=== PATIENT | male | born 1970 | race Caucasian/White ===

== ENCOUNTER 2020-05-06 07:04 | Inpatient (IN) | payer BC ==
[~2020-05-06] VITALS: Ht 175.3 cm; Wt 145.1 kg
[2020-05-06 07:14] VITALS: BP 168/109
[2020-05-06] MEDS ORDERED: CARVEDILOL25 MG PO (07:20)
[2020-05-06] MEDS ORDERED: SPIRONOLACTONE50 MG PO (07:20)
[2020-05-06] MEDS ORDERED: AMLODIPINE BESY10 MG PO (07:21)
[2020-05-06 07:48] LABS: ABSOLUTE LYMPHOCYTES 0.6 thou/uL (0.8-5.3); ABSOLUTE MONOCYTES 0.9 thou/uL (0.0-1.2); ABSOLUTE NEUTROPHILS 6.8 thou/uL (1.6-8.1); BASOPHILS 0.1 %; HEMATOCRIT 42.7 % (42.0-52.0); HEMOGLOBIN 14.9 gm/dL (14.0-18.0); LYMPHOCYTES 7.1 %; MCH 30.8 pg (26.0-34.0); MCHC 34.9 g/dL (28.0-37.0); MCV 88.3 fL (80.0-100.0); MONOCYTES 10.6 %; MPV 9.5 fl. (7.2-11.1); NUCLEATED RBCS 0 /100WBC; PLATELET COUNT* 304 thou/uL (150-400); POLYS 82.2 %; RBC 4.84 mil/uL (4.50-6.00); RDW-CV 13.9 % (10.5-14.5); WBC 8.3 thou/uL (4.0-11.0)
[2020-05-06 07:51] LABS: CALCIUM 8.2 mg/dL (8.5-10.1); CREATININE 1.4 mg/dL (0.6-1.3); POTASSIUM 4.7 mmol/L (3.5-5.1)
[2020-05-06 08:02] LABS: ALBUMIN 2.5 g/dL (3.4-5.0); APTT 24.5 Seconds (25.0-31.3); INR 1.1; PROTIME 11.9 Seconds (9.20-11.50); TOTAL BILIRUBIN 1.1 mg/dL (<0.1-1.0); TOTAL PROTEIN 7.1 g/dL (6.4-8.2)
--- NOTE | 2020-05-06 09:21 | NUR ---
PT GIVEN BREAKFAST TRAY.
--- NOTE | 2020-05-06 10:17 | EKG ---
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1970 Requested By: Byron Bennett Order Number: [id number] MD: Sharath Retana Measurements Intervals [place] Rate: 127 P: [place]: QRS: -5 QRSD: 100 T: 27 QT: 311 QTc: 453 Interpretive Statements Atrial fibrillation with a tachycardic ventricular response Abnormal R-wave progression, late transition No previous ECG available for comparison Electronically Signed On 05-06-2020 10:17:48 WIRE DRAWER by Sharath Retana [email or web address] <ELECTRONICALLY SIGNED> By: Sharath Retana MD, [facility] 05/06/20 1017 9 9 Sharath Retana MD, [facility] /EPI
--- NOTE | 2020-05-06 12:25 | NUR ---
PT STATES HE IS HAVING LOWER BACK PAIN AND IS REQUESTING PAIN MEDS. HOSPITALIST NOTIFIED THROUGH YOU CALL MD, AWAITING ORDERS CURRENTLY.
[2020-05-06 12:52] VITALS: BP 149/90
--- NOTE | 2020-05-06 13:29 | NUR ---
PT GIVEN LUNCH TRAY, VOICES RELIEF OF PAIN IN LOWER BACK.
[2020-05-06 17:33] VITALS: BP 131/74
[2020-05-06 18:00] VITALS: BP 156/103
[2020-05-06 20:20] VITALS: BP 137/97
[2020-05-06] MEDS ORDERED: BENAZEPRIL HCL20 MG PO (20:58)
[2020-05-07] VITALS: BP 145/89
[2020-05-07 04:00] VITALS: BP 140/96
[2020-05-07 08:00] VITALS: BP 151/88
[2020-05-07 11:16] LABS: HEMATOCRIT 40.1 % (42.0-52.0); HEMOGLOBIN 13.9 gm/dL (14.0-18.0); MCH 30.7 pg (26.0-34.0); MCHC 34.6 g/dL (28.0-37.0); MCV 88.7 fL (80.0-100.0); MPV 9.5 fl. (7.2-11.1); NUCLEATED RBCS 0 /100WBC; PLATELET COUNT* 336 thou/uL (150-400); RBC 4.52 mil/uL (4.50-6.00); RDW-CV 13.9 % (10.5-14.5); WBC 6.8 thou/uL (4.0-11.0)
[2020-05-07 11:19] LABS: BE -5.2 mmol/L (-2 to +3); PCO2 VENOUS 43.7 mmHg (41.0-51.0)
[2020-05-07 11:32] LABS: ALBUMIN 2.5 g/dL (3.4-5.0); CALCIUM 8.3 mg/dL (8.5-10.1); CREATININE 1.3 mg/dL (0.6-1.3); MAGNESIUM 2.5 mg/dL (1.8-2.4); TOTAL BILIRUBIN 0.7 mg/dL (<0.1-1.0); TOTAL PROTEIN 6.9 g/dL (6.4-8.2)
[2020-05-07 11:46] LABS: ABSOLUTE LYMPHOCYTES 0.3 thou/uL (0.8-5.3); ABSOLUTE MONOCYTES 0.1 thou/uL (0.0-1.2); ABSOLUTE NEUTROPHILS 6.5 thou/uL (1.6-8.1); PLATELET ESTIMATE ADEQUATE
--- NOTE | 2020-05-07 11:48 | NUR ---
Infection Prevention: [facility] reports patient had a positive Covid PCR test on 04/27/20.
[2020-05-07 12:00] VITALS: BP 177/83
--- NOTE | 2020-05-07 13:18 | NUR ---
CM SPOKE TO THE PT VIA THE HOSPITAL ROOM PHONE THE PT IS CURRENTLY UNDER ENHANCED PRECAUTIONS DUE TO BEING COVID POSITIVE. PT IS A&O, NORMALLY INDEPENDENT WITH ADL'S, AND ACTIVE. PT RESIDES AT HOME WITH HIS SPOUSE AND CHILDREN. PT USES O DME, BUT INFORMS THAT HE USED TO OWN A CPAP BUT HE COULDN'T AFFORD IT. PT HAS 0 HX OF HH OR SNF. PT CURRENTLY ON 2L OXYGEN, AND DID NOT HAVE HOME OXYGEN PRIOR TO ADMIT. PT INFORMS THAT HE DOES NOT CURRENTLY HAVE A PCP, BUT PLANS TO GO BACK TO HIS PREVIOUS PCP'S (DR. LUEVANO) OFFICE AND GET AN APPOINTMENT FOR A NEW PCP. CM WILL REMAIN AVAILABLE TO ASSIST AND FOLLOW FOR D/C PLANNING.
[2020-05-07 16:51] VITALS: BP 175/84
[2020-05-07 20:55] VITALS: BP 152/96
--- NOTE | 2020-05-07 23:11 | NUR ---
ZNEON MIDLINE WAS DISLODGED COMPLETELY UPON INITIAL ASSESSMENT OF PATIENT AT 1999. REMOVED DRESSING, SITE HAS NO S/S OF INFECTION.
[2020-05-08] VITALS: BP 150/87
[2020-05-08 04:30] VITALS: BP 150/99
--- NOTE | 2020-05-08 05:08 | NUR ---
PT ALERT AND UP STANDBY ASSIST. DIMINISHED LUNG SOUNDS, COUGH. AFIB WELL CONTROLLED THROUGH SHIFT. HE REQUESTED A HYDROCODONE AT BED TIME FOR LOWER BACK PAIN, SLEPT ALL SHIFT. RECEIVED ALL MEDS SCHEDULED.
[2020-05-08 12:30] VITALS: BP 137/93
--- NOTE | 2020-05-08 14:31 | EKG ---
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: : 1970 Requested By: Neela Boone Order Number: [id number] Narciso MD: Sharath Retana Measurements Intervals [place] Rate: 86 P: [place]: QRS: -8 QRSD: 104 T: -1 QT: 388 QTc: 464 Interpretive Statements Atrial fibrillation Compared to ECG 05/06/2020 07:20:26 No significant changes Electronically Signed On 05-08-2020 14:31:50 BIOMEDICAL SPECIALIST by Sharath Retana [email or web address] <ELECTRONICALLY SIGNED> By: Sharath Retana MD, [facility] 05/08/20 [phone] Sharath Retana MD, [facility] /EPI
--- NOTE | 2020-05-08 14:40 | NUR ---
DISCUSSED IN PRIME TIMES ROUNDS THIS AM. PT.IS DOING WELL. POTENTIAL FOR DISCHARGE TOMORROW. RESTING AND EXERCISE SATS ORDERED. SHOULD NOT HAVE NEED FOR HOME HEALTH.
[2020-05-08 17:30] VITALS: BP 174/98
--- NOTE | 2020-05-08 19:07 | NUR ---
PT A&OX4 VSS. PT UP AD OSVALDO TO BSC. PT SAT 93% ON ROOM AIR. EDEMA OBSERVED TO BLE. IV TO RFA AND MIDLINE TO OL ARM STARTED BY NEGIN VILLALOBOS. PT UP TO RECLINER THIS SHIFT. PT RESTS WITH CALL LIGHT IN REACH. WILL CONTINUE TO MONITOR.
[2020-05-08 20:05] VITALS: BP 156/99
[2020-05-08 23:33] VITALS: BP 128/108
[2020-05-09 04:00] VITALS: BP 171/108
--- NOTE | 2020-05-09 04:40 | NUR ---
PT GIVEN 1 HYDROCODONE AT BEDTIME FOR CHRONIC LOWER BACK PAIN. HE IS STANDBY ASSIST. ROOM AIR. DOING MUCH BETTER STATES HE FEELS MUCH BETTER JUST SOME ISSUES WITH SOME DIARRHEA. OTHER THAN THAT NO REPORTS OF WORSENING OF CONDITION.
[2020-05-09] MEDS ORDERED: ZINC SULFATE 2220 MG PO (09:15)
[2020-05-09] MEDS ORDERED: PREDNISONE 10 M10 MG PO (09:15)
[2020-05-09] MEDS ORDERED: PEPCID20 MG PO (09:15)
[2020-05-09] MEDS ORDERED: PRINIVIL40 MG PO (09:15)
[2020-05-09] MEDS ORDERED: PNV 29-1 TABLE1 EACH PO (09:15)
[2020-05-09] MEDS ORDERED: CEFDINIR300 MG PO (09:15)
[2020-05-09] MEDS ORDERED: SORINE 80 MG TA80 M1 PO (09:15)
[2020-05-09 10:00] VITALS: BP 142/95
[2020-05-09 11:38] VITALS: BP 147/98
--- NOTE | 2020-05-09 12:00 | NUR ---
ASSUMED CARE OF PT AT 0730. PT SITTING UP IN THE CHAIR WAITING FOR BREAKFAST. A&0X4, DENIES ANY PAIN OR SHORTNESS OF BREATH AT THIS TIME. ON RA SAT UPPER 90'S. PT HAS NON PRODUCTIVE COUGH. TRACING AFIB ON THE ASSISTANT FRONT DESK MANAGER. RATE CONTROLLED. PT UP AD OSVALDO IN ROOM. PT GOAL FOR TODAY IS DISCHARGE PLANNING TO HOME. AM ASSESSMENT CHARTED. MEDICATIONS PER MAR. PT REPOSITIONS SELF. HOURLY ROUNDING OBSERVED. BED IN LOW POSITION. CALL LIGHT WITHIN REACH. WILL CONTINUE PLAN OF CARE.
--- NOTE | 2020-05-09 13:41 | EKG ---
[place] [address] ELECTROCARDIOGRAM REPORT Name: BRIDGET MCKEON Room: [address] ADM IN M.R.#: [id number] Admission: 05/06/20 Attend Phys: Sonia Palm, Discharge: Date of : 70 Date of Service: 05/09/20 1104 Report #: [id number] THIS REPORT FOR: //name// 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 : 1970 Requested By: Neela Boone Order Number: [id number] Reading MD: Santy Chau Measurements Intervals [place] Rate: 89 P: [place]: QRS: -17 QRSD: 116 T: 19 QT: 391 QTc: 476 Interpretive Statements Atrial fibrillation Nonspecific intraventricular conduction delay Low voltage, precordial leads Compared to ECG 05/08/2020 08:43:25 Intraventricular conduction delay now present Low QRS voltage now present Electronically Signed On 05-09-2020 13:41:10 PATIENT DAY COORDINATOR by Santy Chau [email or web address] <ELECTRONICALLY SIGNED> By: Santy Chau MD, FACC 05/09/20 1341 1104 1104 Santy Chau MD, FAC /EPI
[2020-05-09 15:38] VITALS: BP 147/98
--- NOTE | 2020-05-09 15:55 | 2DMMODE ---
[place] [address] 2 D/M-MODE ECHOCARDIOGRAM Name: AGAPITOLISS LEMihir Winkler Room: [address] IN M.R.#: [id number] Admission: 05/06/20 Attend Phys: Sonia Palm, Discharge: Date of : 70 Date of Service: 05/09/20 1554 Report #: [id number] THIS REPORT FOR: cc: FAM - No family physician/PCP FAM - No family physician/PCP Santy Chau MD [facility] ~ APPROVED REPORT Study performed: 05/07/2020 08:41:04 EXAM: Comprehensive 2D, Doppler, and color-flow Echocardiogram Patient Location: In-Patient BSA: 2.52 HR: 93 bpm BP: 177/83 mmHg Rhythm: Atrial Fibrillation Other Information Study Quality: Fair Technically limited study due to body habitus. 2D Dimensions IVSd: 11.49 (7-11mm) LVOT Diam: 19.58 (18-24mm) LVDd: 39.67 mm PWd: 9.99 (7-11mm) Ascending Ao: 30.46 (22-36mm) LVDs: 26.87 (25-40mm) Aortic Root: 27.45 mm Pulmonary Valve PV Peak Arnoldo.: 1.03 m/s PV Peak Gr.: 4.27 mmHg Left Ventricle The left ventricle is normal size. There is normal LV segmental wall motion. There is normal left ventricular wall thickness. The left ventricular systolic function is normal. LVEF is 55-60%. This study is not technically sufficient to allow evaluation of the LV diastolic function due to atrial fibrillation. Right Ventricle The right ventricle is normal size. The right ventricular systolic function is [place] [address] 2 D/M-MODE ECHOCARDIOGRAM Name: BRIDGET MCKEON Room: [address] IN .R.#: [id number] Admission: 05/06/20 Attend Phys: Sonia Palm, Discharge: Date of : 70 Date of Service: 05/09/20 1554 Report #: [id number] Left atrium is moderately dilated. The right atrium size is normal. Aortic Valve The aortic valve is normal in structure. No aortic regurgitation is present. Mitral Valve The mitral valve is normal in structure. There is no mitral valve regurgitation noted. Tricuspid Valve The tricuspid valve is normal in structure. There is no tricuspid valve regurgitation noted. Pulmonic Valve The pulmonary valve is normal in structure. There is no pulmonic valvular regurgitation. Great Vessels The aortic root is normal in size. IVC is normal in size and collapses >50% with inspiration. <Conclusion> The left ventricle is normal size. There is normal left ventricular wall thickness. The left ventricular systolic function is normal. LVEF is 55-60%. This study is not technically sufficient to allow evaluation of the LV diastolic function due to atrial fibrillation. There is normal LV segmental wall motion. Left atrium is moderately dilated. IVC is normal in size and collapses >50% with inspiration. <ELECTRONICALLY SIGNED> By: Santy Chau MD, FACC 05/09/20 1554 1554 1554 Santy Chau MD, FACC /INF
--- NOTE | 2020-05-09 16:15 | NUR ---
PER R.T., PT.DID NOT QUALIFY FOR HOME O2 WITH RESTING AND EXERCISE SAT TEST. NO HOME HEALTH OARDERS WRITTEN. WILL GO HOME WITH SELF CARE.
--- NOTE | 2020-05-09 19:25 | NUR ---
DISCHARGE ORDERS RECEIVED. DISCHARGE INSTRUCTIONS, CARE NOTES, SCRIPTS AND FOLLOW UP APPTS GIVEN TO PT. PT COMMUNICATES UNDERSTANDING OF DISCHARGE TEACHING. PERIPHERAL IV AND MIDLINE IV REMOVED WITH NO DIFFICULTIES. LAW FIRM ADMINISTRATOR REMOVED. PT DISCHARGED WITH ALL BELONGINGS AND PAPERWORK VIA WHEELCHAIR WITH NURSING STAFF TO SPOUSE OWN PERSONAL VEHICLE.
== END 2020-05-09 19:28 | disposition home or self-care (01) | DRG 177 ==
LOC: M.ERS 07:04 → M.TBA-ER 08:52 → M.ORTHSURG 08:52
PROVIDERS: Family Medicine; Internal Medicine; ADMIT Internal Medicine; ATTEND Internal Medicine
PROC: 05HY33Z Insertion of Infusion Device into Upper Vein, Percutaneous Approach (ICD-10-PCS; principal; 2020-05-06)
DX: U07.1 COVID-19 (principal); J96.01 Acute respiratory failure with hypoxia; J12.82 Pneumonia due to coronavirus disease 2019; R65.11 Systemic inflammatory response syndrome (SIRS) of non-infectious origin with acute organ dysfunction; N17.0 Acute kidney failure with tubular necrosis; E87.1 Hypo-osmolality and hyponatremia; Z68.42 Body mass index [BMI] 45.0-49.9, adult; I10 Essential (primary) hypertension; E66.01 Morbid (severe) obesity due to excess calories; G47.33 Obstructive sleep apnea (adult) (pediatric); I48.0 Paroxysmal atrial fibrillation; Z82.49 Family history of ischemic heart disease and other diseases of the circulatory system

== ENCOUNTER 2020-06-15 11:33 | Observation (INO) | payer BC ==
[~2020-06-15] VITALS: Ht 177.8 cm; Wt 145.2 kg
[~2020-06-15 11:33] MED LIST: AMLODIPINE BESY10 MG PO; BENAZEPRIL HCL20 MG PO; CARVEDILOL25 MG PO; CEFDINIR300 MG PO; PEPCID20 MG PO; PNV 29-1 TABLE1 EACH PO; PREDNISONE 10 M10 MG PO; PRINIVIL40 MG PO; SORINE 80 MG TA80 M1 PO; SPIRONOLACTONE50 MG PO; ZINC SULFATE 2220 MG PO
[2020-06-15 11:44] VITALS: BP 141/69
[2020-06-15 12:24] LABS: ABSOLUTE EOSINOPHILS 0.2 thou/uL (0.0-0.7); ABSOLUTE LYMPHOCYTES 1.6 thou/uL (0.8-5.3); ABSOLUTE MONOCYTES 0.9 thou/uL (0.0-1.2); ABSOLUTE NEUTROPHILS 6.2 thou/uL (1.6-8.1); BASOPHILS 0.5 %; EOSINOPHILS 2.4 %; HEMATOCRIT 41.4 % (42.0-52.0); HEMOGLOBIN 14.1 gm/dL (14.0-18.0); MCH 30.8 pg (26.0-34.0); MCV 90.6 fL (80.0-100.0); MPV 8.2 fl. (7.2-11.1); NUCLEATED RBCS 0 /100WBC; PLATELET COUNT* 364 thou/uL (150-400); POLYS 69.1 %; RBC 4.57 mil/uL (4.50-6.00); RDW-CV 15.3 % (10.5-14.5); WBC 8.9 thou/uL (4.0-11.0)
[2020-06-15 12:37] LABS: ALBUMIN 3.4 g/dL (3.4-5.0); CALCIUM 10.1 mg/dL (8.5-10.1); CREATININE 1.8 mg/dL (0.6-1.3); TOTAL BILIRUBIN 0.6 mg/dL (<0.1-1.0); TOTAL PROTEIN 7.5 g/dL (6.4-8.2)
[2020-06-15 14:16] VITALS: BP 121/74
[2020-06-15 14:30] VITALS: BP 151/84
[2020-06-15 17:26] VITALS: BP 123/70
[2020-06-15 20:00] VITALS: BP 126/62
[2020-06-16] VITALS: BP 115/67
[2020-06-16 04:00] VITALS: BP 126/62
[2020-06-16 05:14] LABS: HEMATOCRIT 35.1 % (42.0-52.0); MCH 31.3 pg (26.0-34.0); MCHC 34.3 g/dL (28.0-37.0); MCV 91.2 fL (80.0-100.0); MPV 8.2 fl. (7.2-11.1); RBC 3.85 mil/uL (4.50-6.00); RDW-CV 15.4 % (10.5-14.5); WBC 8.6 thou/uL (4.0-11.0)
[2020-06-16 06:22] LABS: CALCIUM 9.1 mg/dL (8.5-10.1); CREATININE 2.1 mg/dL (0.6-1.3)
[2020-06-16 06:23] LABS: POTASSIUM 5.2 mmol/L (3.5-5.1)
[2020-06-16 08:15] VITALS: BP 109/66
[2020-06-16 11:22] LABS: POTASSIUM 6.4 mmol/L (3.5-5.1)
[2020-06-16 14:26] LABS: CALCIUM 8.6 mg/dL (8.5-10.1); POTASSIUM 5.1 mmol/L (3.5-5.1)
[2020-06-16 17:29] VITALS: BP 134/77
[2020-06-16 20:00] VITALS: BP 124/64
[2020-06-17] VITALS: BP 144/76
[2020-06-17 04:00] VITALS: BP 127/67
[2020-06-17 04:24] LABS: HEMATOCRIT 37.1 % (42.0-52.0); HEMOGLOBIN 12.5 gm/dL (14.0-18.0); MCHC 33.8 g/dL (28.0-37.0); MCV 91.6 fL (80.0-100.0); MPV 8.6 fl. (7.2-11.1); RBC 4.05 mil/uL (4.50-6.00); RDW-CV 15.5 % (10.5-14.5); WBC 8.8 thou/uL (4.0-11.0)
[2020-06-17 04:35] LABS: CALCIUM 8.7 mg/dL (8.5-10.1); CREATININE 1.9 mg/dL (0.6-1.3); POTASSIUM 4.8 mmol/L (3.5-5.1)
[2020-06-17 08:21] VITALS: BP 133/68
[2020-06-17 11:40] VITALS: BP 126/71
--- NOTE | 2020-06-17 13:44 | EKG ---
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 : 1970 Requested By: Janusz Malone Order Number: [id number] MD: Sharath Retana Measurements Intervals [place] Rate: 77 P: 34 MN: 182 QRS: 1 QRSD: 89 T: 24 QT: 354 QTc: 401 Interpretive Statements Sinus rhythm Probable left atrial enlargement Low voltage, precordial leads Possible anteroseptal infarct, old Baseline wander in lead(s) V4 Compared to ECG 05/09/2020 11:04:29 Myocardial infarct finding now possible Atrial fibrillation no longer present Intraventricular conduction delay no longer present Electronically Signed On 06-17-2020 13:44:24 SUPERVISOR PLEATING by Sharath Retana [email or web address] <ELECTRONICALLY SIGNED> By: Sharath Retana MD, [facility] 06/17/20 1344 11 121 Sharath Retana MD, [facility] /EPI
[2020-06-17 14:49] VITALS: BP 126/71
== END 2020-06-17 16:15 | disposition home or self-care (01) ==
LOC: M.ERS 11:33 → M.2W 12:53 → M.TBA-ER 12:53 → M.2W 14:26
PROVIDERS: Emergency Medicine Emergency Medical Services; Internal Medicine; ADMIT Family Medicine; ATTEND Family Medicine
DX: U07.1 COVID-19 (principal); I48.20 Chronic atrial fibrillation, unspecified; E87.5 Hyperkalemia; E87.1 Hypo-osmolality and hyponatremia; J96.00 Acute respiratory failure, unspecified whether with hypoxia or hypercapnia; I10 Essential (primary) hypertension; E66.01 Morbid (severe) obesity due to excess calories; G47.33 Obstructive sleep apnea (adult) (pediatric); N28.9 Disorder of kidney and ureter, unspecified; Z79.899 Other long term (current) drug therapy

== ENCOUNTER → 2020-06-20 | Outpatient (CLI) | payer BC ==
[2020-06-20 12:21] LABS: ALBUMIN 3.1 g/dL (3.4-5.0); CALCIUM 9.4 mg/dL (8.5-10.1); CREATININE 1.6 mg/dL (0.6-1.3); POTASSIUM 4.9 mmol/L (3.5-5.1); TOTAL BILIRUBIN 0.7 mg/dL (<0.1-1.0); TOTAL PROTEIN 6.8 g/dL (6.4-8.2)
== END ==
LOC: M.LAB 11:53
PROVIDERS: ATTEND Registered Nurse
DX: N28.9 Disorder of kidney and ureter, unspecified (principal)

== ENCOUNTER 2020-09-10 15:39 | Emergency (ER) | payer BC ==
[~2020-09-10] VITALS: Ht 175.3 cm; Wt 140.6 kg
[2020-09-10] MEDS ORDERED: DEMADEX20 MG PO (15:54)
[2020-09-10] MEDS ORDERED: CARDURA XL4 MG PO (15:54)
[2020-09-10] MEDS ORDERED: SUPER THERAVIT1 EACH PO (15:54)
[2020-09-10] MEDS ORDERED: VITAMIN D310 MC2 PO (15:55)
[2020-09-10 16:24] LABS: ABSOLUTE BASOPHILS 0.1 thou/uL (0.0-0.2); ABSOLUTE EOSINOPHILS 0.2 thou/uL (0.0-0.7); ABSOLUTE LYMPHOCYTES 2.2 thou/uL (0.8-5.3); ABSOLUTE MONOCYTES 1.1 thou/uL (0.0-1.2); ABSOLUTE NEUTROPHILS 6.2 thou/uL (1.6-8.1); BASOPHILS 0.7 %; EOSINOPHILS 1.6 %; HEMATOCRIT 39.6 % (42.0-52.0); HEMOGLOBIN 13.6 gm/dL (14.0-18.0); LYMPHOCYTES 22.5 %; MCH 30.9 pg (26.0-34.0); MCHC 34.4 g/dL (28.0-37.0); MCV 89.6 fL (80.0-100.0); MONOCYTES 11.3 %; MPV 8.7 fl. (7.2-11.1); NUCLEATED RBCS 0 /100WBC; PLATELET COUNT* 260 thou/uL (150-400); POLYS 63.9 %; RBC 4.42 mil/uL (4.50-6.00); RDW-CV 14.5 % (10.5-14.5); WBC 9.7 thou/uL (4.0-11.0)
[2020-09-10 16:32] LABS: CALCIUM 8.6 mg/dL (8.5-10.1); CREATININE 1.2 mg/dL (0.6-1.3); POTASSIUM 3.3 mmol/L (3.5-5.1)
[2020-09-10 16:37] LABS: ALBUMIN 3.1 g/dL (3.4-5.0); TOTAL BILIRUBIN 0.7 mg/dL (<0.1-1.0); TOTAL PROTEIN 7.8 g/dL (6.4-8.2)
[2020-09-10] MEDS ORDERED: CEPHALEXIN500 MG PO (18:37)
[2020-09-10] MEDS ORDERED: HYDROCODON-ACE1 EAC7 PO (18:37)
[2020-09-10 18:53] VITALS: BP 192/100
--- NOTE | 2020-09-11 10:18 | EKG ---
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
== END 2020-09-10 18:54 | disposition home or self-care (01) ==
LOC: M.ERS 15:39
PROVIDERS: Family Medicine
DX: R22.31 Localized swelling, mass and lump, right upper limb (principal); M79.631 Pain in right forearm; I10 Essential (primary) hypertension; I48.91 Unspecified atrial fibrillation; G47.33 Obstructive sleep apnea (adult) (pediatric); E66.01 Morbid (severe) obesity due to excess calories; Z68.42 Body mass index [BMI] 45.0-49.9, adult; Z88.1 Allergy status to other antibiotic agents